=== PATIENT | female | born 1985 | race Caucasian/White ===

== ENCOUNTER 2021-09-17 11:09 | Emergency (ER) | payer SELFPAY ==
[2021-09-17] MEDS ORDERED: traMADol 50 MG Tab PO ONE (11:20)
== END 2021-09-17 12:35 | disposition home or self-care (01) ==
LOC: MW.ED 11:09
DX: S50.01XA Contusion of right elbow, initial encounter (principal); Z88.5 Allergy status to narcotic agent; W17.89XA Other fall from one level to another, initial encounter
CPT/HCPCS: 73030; 73080; 99283; A9270